=== PATIENT | female | born 1955 | race Two or more races ===

== ENCOUNTER 2023-09-04 10:43 | Emergency (ER) | payer OTHER ==
[~2023-09-04] VITALS: Ht 152.4 cm; Wt 74.9 kg
[~2023-09-04 10:43] MED LIST: ATO40T PO; LEVO500T31 PO; METR500T PO
[2023-09-04] MEDS: ACETAMINOPHEN 500 MG TAB PO ONE (11:05)
[2023-09-04 12:05] VITALS: BP 155/87; PULSE 111; RESP 18; O2SAT 96
[2023-09-04] MEDS: IBUPROFEN 600 MG TAB PO ONE (12:18)
[2023-09-04 12:52] VITALS: TEMP 98.6
[2023-09-04 13:38] LABS: Rapid Influenza A Negative (Negative); Rapid Influenza B Negative (Negative)
[2023-09-04 13:39] LABS: COVID19 ANTIGEN SOFIA FIA NEGATIVE (NEGATIVE)
[2023-09-04] MEDS ORDERED: IBUP1TAB5 PO (14:05)
== END 2023-09-04 14:21 | disposition home or self-care (01) ==
LOC: ER 10:43
DX: J06.9 Acute upper respiratory infection, unspecified (principal); Z88.0 Allergy status to penicillin; Z88.2 Allergy status to sulfonamides; Z20.822 Contact with and (suspected) exposure to COVID-19; Z79.899 Other long term (current) drug therapy
CPT/HCPCS: 36415; 87426; 87804; 93005